=== PATIENT | male | born 1950 | race Caucasian/White ===

== ENCOUNTER 2016-04-22 17:43 | Emergency (ER) | payer MEDICARE ==
[~2016-04-22] VITALS: Ht 185.4 cm; Wt 71.8 kg
[~2016-04-22 17:43] MED LIST: DILT-17 PO; FURO-128 PO; GABA-502 PO; LORA-303 PO; WARF1TAB6 PO; WARF2.5T82 PO
[2016-04-22 17:54] VITALS: BP 121/70; PULSE 94; RESP 22; O2SAT 92
[2016-04-22] MEDS ORDERED: 0.9% Sodium Chloride 1,000 ML IV ONE (17:59)
--- NOTE | 2016-04-22 17:59 | ED.REPORT ---
HPI-Dyspnea / Wheezing Date of Service Apr 22, 2016 ED Provider: Dr. Vishal Patrick MD A 66 year old male with a history of CHF, COPD, hypertension, polycythemia vera , DVT, PE and peripheral neuropathy presents to the ED complaining of SOB that became increasingly worse 10 days ago. Patient is currently waiting for a bilateral lung transplant at . Patient has been on 10% O2 at home. Family reports new onset lower extremity edema. He denies any current steroid treatment. Nursing Notes Stated Complaint: SHORTNESS OF BREATH Chief Complaint: Respiratory Complaints Nursing Notes Reviewed: Yes Allergies: Coded Allergies: No Known Allergies (Verified Allergy, Unknown, 04/22/16) Scheduled Diltiazem ER (Diltiazem ER) 120 Mg Cap.er.24h 120 MG PO DAILY Furosemide (Lasix) 40 Mg Tablet 40 MG PO DAILY Gabapentin (Gabapentin) 300 Mg Capsule 300 MG PO TID Warfarin Sodium (Warfarin Sodium) 1 Mg Tablet 1.25 MG PO 1DWK Warfarin Sodium (Warfarin Sodium) 2.5 Mg Tablet 2.5 MG PO 4days per week Scheduled PRN Lorazepam (Ativan) 1 Mg Tablet 1 MG PO QID PRN PRN For Insomnia General Time Seen by MD: 17:59 Chief Complaint Shortness of breath Hx Obtained From: Patient Arrived By: Walk-in Sudden in Onset?: No Onset Occurred: More than a week ago... (2 weeks) Symptom Duration: Since onset Associated with: Reports: Leg swelling Pertinent Negative: Pt denies other symptoms Recent Healthcare: No recent hospitalization, Recent doctor visit Past Medical History Past Medical History Notes: PCP: Dr. Rebollar Past Medical History 1. Polycythemia vera. 2. Hx of right lowr extremity deep venous thrombosis and pulmonary embolism, on chronic anticoagulation therapy. 3. Chronic obstructive pulmonary disease 4. Peripheral sensory neuropathy. Reports: COPD, Congestive heart failure, Hypertension Past Surgical History None reported Smoking History Former Smoker Social History Alcohol Use: Denies alcohol use Other Social History: Good social support, Local resident Ambulatory Status Independent Review of Systems Constitutional: Denies: Chills, Fever Respiratory: Reports: Shortness of breath, Wheezing Cardiovascular: Reports: Edema (bilateral leg), Denies: Chest pain Complete sys rev & neg: except as marked. GI: Denies: Abdominal pain, Nausea, Vomiting Neurologic: Denies: Change LOC Physical Exam Initial Vital Signs Vital Signs (First) Date Time Temp Pulse Resp B/P Pulse Ox O2 Delivery O2 Flow Rate FiO2 04/22/16 17:54 36.5 94 22 121/70 92 Nasal Cannula 8 04/22/16 20:30 50 Initial VS: Reviewed Head / Eyes: Atraumatic, Normocephalic, PERRL Extremities: Vascular intact, Neuro intact, No swelling, No tenderness Skin: Warm, Dry, No cyanosis Psychiatric: Mood/affect normal, Behavior normal, Normal thought content General/Constitutional: Awake, Alert Distress / Hydration: Positive: Distress moderate Neck: Atraumatic, Supple Respiratory / Chest: Atraumatic Resp Distress / Stridor: Positive: Resp distress moderate Wheezing / Retractions: Positive: Wheeze insp/exp diffuse, Wheezing severe Rales / Rhonchi: Positive: Rales diffuse RESPIRATORY: Tachypneic Patient is able to speak 2-3 word sentences between gasps Poor air movement Cardiovascular: Regular rhythm, Heart sounds NL Heart Rate / Rhythm: Positive: Tachycardia Lower Ext Edema: Positive: Pitting (Lower extremities) Abdomen: Atraumatic, Soft, Non-tender Neurologic: Oriented X3, Speech NL, No motor deficits, No sensory deficits, CN II - XII intact NERUO: No focal deficits Interpretation & Diagnostics Lab Results Interpretation Result Diagram: 04/22/16182004/22/16 182 Test 04/22/16 18:21 White Blood Count 13.3th/mm3 (3.8-10.1) Red Blood Count 6.61mil/mm3 (4.40-5.80) Hemoglobin 12.8g/dL (13.8-17.2) Hematocrit 44.7% (41.0-50.0) Mean Corpuscular Volume 67.6fL (81-100) Mean Corpuscular Hemoglobin 19.4pg (27.0-35.0) Mean Corpuscular Hemoglobin Concent 28.6% (32.0-37.0) Red Cell Distribution Width 18.9% (12.3-15.4) Platelet Count 277bil/L (150-400) Neutrophils (%) (Auto) 73.0% (40-74) Lymphocytes (%) (Auto) 8.4% (14-46) Monocytes (%) (Auto) 13.6% (4-12) Eosinophils (%) (Auto) 3.2% (0-5) Basophils (%) (Auto) 0.5% (0-3) Prothrombin Time 30.2sec (8.1-12.5) Prothromb Time International Ratio 2.76ratio Sodium Level 143mEq/L (134-144) Potassium Level 4.1mEq/L (3.5-5.2) Chloride Level 100mEq/L (97-108) Carbon Dioxide Level 28mmol/L (18-29) Blood Urea Nitrogen 16mg/dL (8-27) Creatinine 0.81mg/dL (0.76-1.27) Estimat Glomerular Filtration Rate 101mL/min (>59) Glucose Level 92mg/dL (60-99) Calcium Level 8.7mg/dL (8.5-10.1) Magnesium Level 1.9mg/dL (1.6-2.6) Total Bilirubin 1.3mg/dL (0.0-1.2) Aspartate Amino Transf (AST/SGOT) 20U/L (0-50) Alanine Aminotransferase (ALT/SGPT) 14U/L (0-44) Alkaline Phosphatase 48U/L (25-160) Troponin T < 0.010ug/L (0.0-0.011) Pro-B-Type Natriuretic Peptide 8189pg/mL (0-376) Total Protein 6.4g/dL (6.4-8.4) Albumin 4.2g/dL (3.4-5.0) Lab Results Interpretation: BLOOD GAS: pH normal PCO2 elevated: 7 PO2: 55.7 extreme hypoxia REPEAT BLOOD GAS pH: 7.382 pCO2: 44 PO2: 80.1 Pulse Oximetry Interpretation Pulse Oximetry: Pulse Ox low ECG Interpretation ECG Interpretation: Sinus Rhythm Rate 94 Probable left atrial enlargement incomplete right bundle branch block Time: 18:13 Interpreted by: ED physician Normal ECG Interpretation: No change from prior ECGs (04/11/15) Rhythm Strip Interpretation : Time: 18:38 Rhythm Strip Interpretation: Interpreted by me, Sinus tachycardia X-Ray Chest Interpretation Chest Xray Interpretation: IMPRESSION: 1. Emphysematous changes 2. Pulmonary arterial hypertension 3. Pulmonary fibrosis Interpretation / Wet Read by: Wet read ED physician Chest Xray Interpretation: IMPRESSION: 1. Findings consistent with COPD redemonstrated. 2. Bibasilar interstitial opacities consistent with chronic interstitial lung disease, increased from the prior study. 3. Confluent bandlike left basilar opacity may represent atelectasis, scarring, or consolidation. Dictated by: Mike Alonzo M.D. on 04/22/2016 at 18:45 Interpretation / Wet Read by: Interpret - Radiologist Re-Eval/Medical Decision Re-Evaluation/Progress #1: Time of Eval: 18:52 Treatment Summary: Albuterol nebulizer x 1 Patient Status: Condition improved Re-Evaluation/Progress Note: Patient is rechecked. He is informed of hsi lab results and X-ray results. Patient is able to speak in 5-7 word sentences. Improved ability to move air. Re-Evaluation/Progress #2: Time of Eval: 19:23 Treatment Summary: Albuterol nebulizer x 1 Patient Status: Condition improved Re-Evaluation/Progress Note: Patient is rechecked. He is informed of his diagnosis. All questions are addressed. He understands and agrees with the treatment plan to admit. Re-Evaluation/Progress #3: Time of Eval: 19:44 Patient Status: Condition improved Re-Evaluation/Progress Note: Patient is rechecked. He is informed of the plan to begin bipap. COde status is discussed. He would like to be full code. Re-Evaluation/Progress #4: Time of Eval: 20:21 Patient Status: Condition improved Re-Evaluation/Progress Note: Patient is rechecked. Breathing improved significantly. O2 stats at 100% Re-Evaluation/Progress #5: Time of Eval: 21:37 Patient Status: Condition improved Re-Evaluation/Progress Note: Patient is rechecked. Condition is significantly improved. Symptoms are improved after bipap treatment. He is informed of the plan to consult with . All questions are addressed. Re-Evaluation/Progress #6: Time of Eval: 21:47 Patient Status: Condition improved Re-Evaluation/Progress Note: Patient is rechecked. Consent is given. Symptoms improved. Patient is stable for transfer. Consultation #1: Referral / Consult Name: Galdino Issa MD Consulted With: Hospitalist Call Returned at: 19:41 Transportation Solutions Manager: Will see patient, Agrees with eval, Agrees with plan, Accepts admit Consultation #2: Call Returned at: 20:20 Transportation Solutions Manager: Agrees with eval, Agrees with plan Note: Consulted with [facility] about possible transfer Consultation #3: Call Returned at: 21:38 Transportation Solutions Manager: Will see patient, Agrees with eval, Agrees with plan, Accepts admit Note: Dr. Cortez accepts admit and will call again about bed availabilty Counseled Regarding: Diagnosis, Lab results, Need for transfer Discharge & Departure Impression: Primary Impression: Acute chronic obstructive pulmonary disease with respiratory distress Additional Impressions: Pulmonary fibrosis Pneumonia Pneumonia type: due to unspecified organism Laterality: unspecified laterality Lung location: unspecified part of lung Qualified Code: B99.9 - Unspecified infectious disease Disposition: Transfer, Acute Care Facility ( ) Discharge Condition All VS Reviewed: Yes Condition: Stable Referrals: Atilio Rebollar MD (PCP) Crit Care Except Billable Proc Time Spent: 195-224 minutes Services Performed: Patient management by me, Time spent at bedside, Reviewing test results, Reviewing imaging, Discussing patient care, Documentation in record, Time with fam/surrogate Scribe Attestation Portions of this note were transcribed by Georgi Jones. I, Dr. Patrick personally performed the history, physical exam and medical decision-making; I reviewed and confirmed the accuracy of the information in the transcribed note. Signed by: Dulce Lara, 04/22/16 2200. copies to: Atilio Rebollar MD, Todd P DO Apr 22, 2016 17:59 GEORGI JONES Apr 22, 2016 18:13
[2016-04-22] MEDS ORDERED: Albuterol-Ipratropium 3 mL Inhalation Solution NEB ONE (18:00)
[2016-04-22 18:10] VITALS: PULSE 99; RESP 24; O2SAT 94
[2016-04-22] MEDS ORDERED: MethylprednisoLONE Sodium Succinate 62.5 mg/mL 2 mL Inj IVPUSH ONE (18:35)
[2016-04-22] MEDS ORDERED: Albuterol 2.5 mg/3 mL Inhalation Solution NEB ONE (18:35)
[2016-04-22] MEDS ORDERED: Piperacillin-Tazo 3.375 Gm Inj 3.375 GM in Dextrose 5% Minibag Plus 50 ML IV SCH (18:40)
[2016-04-22 18:44] LABS: BASOPHILS % (AUTO) 0.5 % (0-3); Mean Corpuscular Hemoglobin 19.4 pg (27.0-35.0)
[2016-04-22] MEDS ORDERED: levoFLOXacin Inj 750 MG in IV Premix 1 EACH IV ONE (18:45)
[2016-04-22 18:50] LABS: EOSINOPHILS % (AUTO) 3.2 % (0-5); MONOCYTES % (AUTO) 13.6 % (4-12); Mean Corpuscular Volume 67.6 fL (81-100); Platelet Count 277 bil/L (150-400)
--- NOTE | 2016-04-22 18:57 | DRSVH ---
PROCEDURE: X-RAY CHEST ONE VIEW, PORTABLE ([id number]) INDICATIONS: dyspnea TECHNIQUE: One view of the chest was acquired. COMPARISON: [facility], CT, CHEST ANGIO-PE, 11/24/2013, 4:47. [facility], CR , XR CHEST 1VW (PORTABLE), 01/13/2015, 0:08. FINDINGS: Surgical changes and devices: None. Lungs and pleura: No pleural effusions or pneumothorax. There are bibasilar reticular interstitial opacities redemonstrated, increased from the prior study. There is hyperinflation of the lungs with f lattening of the hemidiaphragms compatible with COPD. There is a confluent bandlike peripheral left basilar opacity. Mediastinum: Mediastinal contours appear unchanged. Heart size is normal. Bones and chest wall: No suspicious bony lesions. Overlying soft tissues appear unremarkable. IMPRESSION: 1. Findings consistent with COPD redemonstrated. 2. Bibasilar interstitial opacities consistent with chronic interstitial lung disease, increased fro m the prior study. 3. Confluent bandlike left basilar opacity may represent atelectasis, scarring, or consolidation. Dictated by: Mike Alonzo M.D. on 04/22/2016 at 18:45 Approved by: Mike Alonzo M.D. on 04/22/2016 at 18:51
[2016-04-22 19:01] LABS: INR 2.76 ratio
[2016-04-22 19:08] LABS: TROPONIN T < 0.010 ug/L (0.0-0.011)
--- NOTE | 2016-04-22 19:11 | ABG ---
DateTimeAnalyzed 19:05:00 -_ pH ____7.409 - 7.350 7.450 pCO2 ___46.5__ -mmHg 35.0 45.0 pO2 ___55.7__ -mmHg 69.0 116 HCO3- ___28.8__ -mmol/L 22.0 26.0 ABE ____3.9__ -mmol/L -2.0 2.0 tHb ___12.4__ -g/dL O2Hb ___87.1__ -% COHb ____1.8__ -% MetHb ____0.8__ -% sO2 ___89.4__ -% 25.0 FIO2 ___56.0__ -% Drawn By MM - Date/Time Notified____ 19:11:00 -_ Spontaneous_RR ___22.0__ -b/min Liter_Flow ____9.0__ -L/min Oxygen Device 1 NEBULIZER - Notified By MM - Notified Whom BEIA, LISSETTE - B 765 -mmHg tO2 ___15.2__ -Vol% Isaías test _Positive -
[2016-04-22 19:17] VITALS: BP 110/62; PULSE 107; RESP 27; O2SAT 91
[2016-04-22 19:19] LABS: Magnesium 1.9 mg/dL (1.6-2.6)
[2016-04-22] MEDS ORDERED: 0.9% Sodium Chloride 500 ML IV ONE (19:35)
[2016-04-22 20:30] VITALS: RESP 24; O2SAT 98
--- NOTE | 2016-04-22 21:55 | ABG ---
DateTimeAnalyzed 21:48:00 -_ pH ____7.294 - 7.350 7.450 pCO2 ___59.0__ -mmHg 35.0 45.0 pO2 ___32.1__ -mmHg 69.0 116 HCO3- ___27.8__ -mmol/L 22.0 26.0 ABE ____0.7__ -mmol/L -2.0 2.0 tHb ___12.0__ -g/dL O2Hb ___49.5__ -% COHb ____1.3__ -% MetHb ____0.8__ -% sO2 ___50.6__ -% 25.0 FIO2 ___50.0__ -% CPAP ___12.0__ -cmH2O PEEP ____6.0__ -cmH2O Set_RR ___16.0__ -b/min Drawn By MM - Date/Time Notified____ 21:55:00 -_ Spontaneous_RR ___24.0__ -b/min Oxygen Device 1 ____BIPAP - Notified By MM - Notified Whom __DR BEIA - B 765 -mmHg tO2 ____8.3__ -Vol% Isaías test _Positive -
--- NOTE | 2016-04-22 22:14 | ABG ---
DateTimeAnalyzed 22:09:00 -_ pH ____7.382 - 7.350 7.450 pCO2 ___44.3__ -mmHg 35.0 45.0 pO2 ___80.1__ -mmHg 69.0 116 HCO3- ___25.7__ -mmol/L 22.0 26.0 ABE ____0.9__ -mmol/L -2.0 2.0 tHb ___12.3__ -g/dL O2Hb ___93.7__ -% COHb ____1.7__ -% MetHb ____0.8__ -% sO2 ___96.1__ -% 25.0 FIO2 ___50.0__ -% CPAP ___12.0__ -cmH2O PEEP ____6.0__ -cmH2O Set_RR ___16.0__ -b/min Drawn By MM - Date/Time Notified____ 22:14:00 -_ Spontaneous_RR ___28.0__ -b/min Oxygen Device 1 ____BIPAP - Notified Whom __DR BEIA - B 765 -mmHg tO2 ___16.2__ -Vol% Isaías test _Positive -
[2016-04-22 22:27] VITALS: BP 112/73; PULSE 110; RESP 18; O2SAT 97
[2016-04-23] MEDS ORDERED: levoFLOXacin Inj 750 MG in IV Premix 1 EACH IV SCH (08:30)
== END 2016-04-22 23:06 | disposition short-term general hospital (02) ==
LOC: SED 17:43
DX: J44.1 Chronic obstructive pulmonary disease with (acute) exacerbation (principal); J96.90 Respiratory failure, unspecified, unspecified whether with hypoxia or hypercapnia; J84.10 Pulmonary fibrosis, unspecified; J18.9 Pneumonia, unspecified organism; I50.9 Heart failure, unspecified; I10 Essential (primary) hypertension; D45 Polycythemia vera; Z87.891 Personal history of nicotine dependence; Z86.711 Personal history of pulmonary embolism; Z86.718 Personal history of other venous thrombosis and embolism; Z99.81 Dependence on supplemental oxygen; Z79.01 Long term (current) use of anticoagulants
CPT/HCPCS: 36415; 36620; 71010; 80053; 82375; 82803; 83735; 83880; 84484; 85025; 85610; 87040; 87804; 93005; 94644; 94645; 94660; 94799; 96365; 96367; 96375; 99291; 99292; J1956; J2060; J2543; J2930; J7040; J7620